=== PATIENT | male | born 2005 | race Two or more races ===

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

== ENCOUNTER 2023-01-10 01:53 | Emergency (ER) | payer MEDICAID ==
[~2023-01-10] VITALS: Ht 167.6 cm; Wt 70.0 kg
[2023-01-10 02:21] LABS: Basophils # (auto) 0 10 ^3/uL (0-0.2); Basophils % (auto) 0.6 % (0.0-2.0); Eosinophils # (auto) 0 10 ^3/uL (0-0.8); Eosinophils % (auto) 0.6 % (0.0-7.0); Hematocrit 47.8 % (41.0-53.0); Hemoglobin 16.4 g/dL (13.5-17.5); Lymphocytes # (auto) 2.4 10 ^3/uL (0.4-5.4); Lymphocytes % (auto) 29.7 % (10.0-50.0); Mean Corpuscular Hemoglobin 28.9 pg (28.0-32.0); Mean Corpuscular Hgb Conc. 34.3 g/dL (32.0-36.0); Mean Corpuscular Volume 84.3 fL (80.0-100.0); Monocytes # (auto) 0.7 10 ^3/uL (0-1.3); Monocytes % (auto) 9.1 % (0.0-12.0); Neutrophils # (auto) 4.9 10 ^3/uL (1.6-8.6); Nucleated Red Blood Cells % 0.1 %; Red Blood Cells 5.67 10^6/uL (4.5-5.90); Red Cell Distribution Width 12.9 % (11.8-14.3); White Blood Cell 8.1 10^3/uL (4.4-10.8)
[2023-01-10 02:35] LABS: Albumin 4.4 g/dL (3.4-5.0); BUN/Creatinine Ratio 20.5 (10.0-20.0); Calcium 9.2 mg/dL (8.5-10.1); Potassium 3.2 mmol/L (3.5-5.1)
[2023-01-10 02:38] LABS: Bilirubin, Total 0.6 mg/dL (0.2-1.0)
[2023-01-10 05:13] VITALS: BP 133/83; RESP 100; TEMP 98.2; O2SAT 100
[2023-01-10 06:45] VITALS: PULSE 80
[2023-01-10] MEDS ORDERED: POTASSIUM CHL 20 Meq TABLET PO ONE (06:45)
== END 2023-01-10 06:55 | disposition home or self-care (01) ==
LOC: ER 01:53
DX: R07.89 Other chest pain (principal); Z79.899 Other long term (current) drug therapy
CPT/HCPCS: 36415; 71045; 80053; 83735; 84484; 85025; 93005

== ENCOUNTER 2023-04-14 02:08 | Emergency (ER) | payer MEDICAID ==
[~2023-04-14] VITALS: Ht 167.6 cm; Wt 71.4 kg
[2023-04-14] MEDS ORDERED: DexAMETHasone SOD PHOS 10MG/1ML VIAL INJ IM ONE (02:45)
[2023-04-14] MEDS ORDERED: PRED20TA2 PO (02:45)
[2023-04-14] MEDS ORDERED: ALBUAER3 IN (02:55)
[2023-04-14] MEDS ORDERED: FLUT1SPR9 (02:57)
[2023-04-14 03:04] VITALS: BP 105/57; PULSE 69; RESP 16; O2SAT 96
== END 2023-04-14 03:36 | disposition home or self-care (01) ==
LOC: ER 02:08
DX: J45.901 Unspecified asthma with (acute) exacerbation (principal); F12.10 Cannabis abuse, uncomplicated; F15.90 Other stimulant use, unspecified, uncomplicated
CPT/HCPCS: 96372; 99283; J1100